=== PATIENT | female | born 1995 | race Caucasian/White ===

== ENCOUNTER 2018-03-21 21:47 | Emergency (ER) | END 2018-03-21 23:39 | disposition home or self-care (01) ==

== ENCOUNTER 2018-05-19 22:28 | Emergency (ER) | END 2018-05-19 22:59 | disposition left against medical advice (07) ==

== ENCOUNTER 2019-02-10 23:19 | Emergency (ER) | payer OTHER ==
[~2019-02-10] VITALS: Ht 165.1 cm; Wt 107.5 kg
[~2019-02-10 23:19] MED LIST: FLUC150T PO; HC30CR25 TOP
[2019-02-10 23:22] VITALS: Ht 165.1 cm; Wt 107.5 kg
[2019-02-11] MEDS ORDERED: ONDANSETRON (ODT) 4 MG TAB ODT STA (02:59)
--- NOTE | 2019-02-11 02:59 | ERD ---
ER Documentation Chief Complaint Chief Complaint L SIDE AP X'S 1 DAY HPI 23-year-old female presenting with left upper quadrant pain that started yesterday. She states that the pain was sharp, cramping, intermittent throughout the evening with associated nonbloody diarrhea. No alleviating factors. Worse after bowel movements. She has had some nausea but no vomiting. No fevers or chills. Denies dysuria or hematuria. No recent travel. ROS All systems reviewed and are negative except as per history of present illness. Medications Home Meds Active Scripts Loperamide Hcl* (Imodium*) 2 Mg Capsule, 2 MG PO .AFTER EA LOOSE BM PRN for DIARRHEA, #10 TAB Prov:GARETH ALBRECHT MD 02/11/19 Ondansetron (Ondansetron Odt) 4 Mg Tab.rapdis, 4 MG PO Q6H PRN for NAUSEA AND/OR VOMITING, #10 TAB Prov:GARETH ALBRECHT MD 02/11/19 Hydrocortisone* Topical (Hydrocortisone* Topical) 2.5%-28.3 Gm Cream..g., 1 APPLIC TOP BID, #1 TUB apply to bug bites Prov:JAY QUINTANILLA 03/21/18 Fluconazole* (Diflucan*) 150 Mg Tablet, 150 MG PO ONCE, #1 TAB Prov:JAY QUINTANILLA 03/21/18 Allergies Allergies: Coded Allergies: No Known Allergy (Unverified , 02/10/19) PMhx/Soc Medical and Surgical Hx: pt denies Medical Hx, pt denies Surgical Hx Hx Alcohol Use: No Hx Substance Use: No Hx Tobacco Use: No Smoking Status: Never smoker FmHx Family History: No diabetes Physical Exam Vitals Vital Signs Date Temp Pulse Resp B/P (MAP) Pulse Ox O2 O2 Flow FiO2 Time Delivery Rate 02/11/19 84 20 116/74 Room Air 02:30 (88) 02/10/19 97.4 95 18 111/68 99 23:22 (82) Physical Exam Const: No acute distress Head: Atraumatic Eyes: Normal Conjunctiva ENT: Normal External Ears, Nose and Mouth. Neck: Full range of motion. No meningismus. Resp: Clear to auscultation bilaterally Cardio: Regular rate and rhythm, no murmurs Abd: Soft, non tender, non distended. No rebound or guarding. Normal bowel sounds Skin: No petechiae or rashes Back: No midline or flank tenderness Ext: No cyanosis, or edema Neur: Awake and alert Psych: Normal Mood and Affect Results 24 hrs Laboratory Tests Test 02/11/19 02:43 02/11/19 02:55 02/11/19 02:57 Urine Color YELLOW Urine Clarity SLIGHTLY CLOUDY Urine pH 5.0 Urine Specific [place] 1.024 Urine Ketones NEGATIVE mg/dL Urine Nitrite NEGATIVE mg/dL Urine Bilirubin NEGATIVE mg/dL Urine Urobilinogen NEGATIVE mg/dL Urine Leukocyte Esterase 2+ Jalil/ul Urine Microscopic RBC 8 /HPF Urine Microscopic WBC 14 /HPF Urine Squamous Epithelial Cells FEW /HPF Urine Bacteria FEW /HPF Urine Hemoglobin 1+ mg/dL Urine Glucose NEGATIVE mg/dL Urine Total Protein NEGATIVE mg/dl Bedside Urine pH (LAB) 5.5 Bedside Urine Protein (LAB) Trace Bedside Urine Glucose (UA) Negative Bedside Urine Ketones (LAB) Negative Bedside Urine Blood 1+ Bedside Urine Nitrite (LAB) Negative Bedside Urine Leukocyte Esterase 1+ (L POC Beta HCG, Qualitative NEGATIVE Current Medications Medications Dose Sig/John Start Time Status Last (Trade) Ordered Route PRN Stop Time Admin Dose Reason Admin Ondansetron 8 mg ONCE STAT 02/11/19 DC 02/11/19 HCl (Zofran ODT 02:59 03:04 Odt) 02/11/19 03:00 Ibuprofen 600 mg ONCE ONCE 02/11/19 DC (Motrin) PO 03:00 02/11/19 03:01 Ketorolac 30 mg ONCE STAT 02/11/19 DC 02/11/19 Tromethamine IV 03:08 03:13 (Toradol) 02/11/19 03:11 Procedures/MDM EMERGENT LABS AND DIAGNOSTIC STUDIES: UA: 2+ leuk esterase and white blood cells noted, however patient asymptomatic Initial Nursing notes reviewed. Previous Medical Records requested via the Electronic Health Record. EMERGENCY DEPARTMENT COURSE / MEDICAL DECISION MAKING: Patient is presenting with left upper quadrant intermittent abdominal pain, currently improved. She is afebrile, with unremarkable vitals and well- appearing on exam. There are no signs of acute surgical abdomen. Doubt pyelonephritis or bowel obstruction. Patient likely suffering from gastroenteritis. I do not feel any further work-up or imaging is necessary at this time. Although her urine was abnormal, she is asymptomatic and does not require treatment with antibiotics. She was treated with pain medications and antiemetics here. Prescription for antiemetics and antidiarrheals given. Return precautions discussed. She was encouraged to return for any worsening symptoms within the next 8 to 12 hours. Departure Diagnosis: Primary Impression: Abdominal pain Abdominal location: left upper quadrant Qualified Codes: R10.12 - Left upper quadrant pain Additional Impression: Diarrhea Diarrhea type: unspecified type Qualified Codes: R19.7 - Diarrhea, unspecified Condition: Stable GARETH ALBRECHT MD Feb 11, 2019 02:59
[2019-02-11] MEDS: IBUPROFEN 600 MG TAB PO ONE ×2 (03:04→03:10)
[2019-02-11] MEDS ORDERED: KETOROLAC 30 MG INJ IV STA (03:08)
[2019-02-11] MEDS ORDERED: LOPE2CAP PO (03:11)
[2019-02-11] MEDS ORDERED: ONDA4TAB14 PO (03:11)
[2019-02-11 04:07] VITALS: BP 100/66; PULSE 68; RESP 14
== END 2019-02-11 04:07 | disposition home or self-care (01) ==
LOC: E/R 23:19
DX: R10.12 Left upper quadrant pain (principal); R19.7 Diarrhea, unspecified
CPT/HCPCS: 36415; 81001; 81025; 96374; J1885; Z7502; Z7610; 81003

== ENCOUNTER 2019-02-12 20:34 | Emergency (ER) | payer OTHER ==
[~2019-02-12] VITALS: Ht 165.1 cm; Wt 106.0 kg
[~2019-02-12 20:34] MED LIST changes: +LOPE2CAP PO; +ONDA4TAB14 PO
[2019-02-12 20:49] VITALS: Ht 165.1 cm; Wt 106.0 kg
[2019-02-12] MEDS ORDERED: FLUCONAZOLE 150 MG TAB PO ONE (23:30)
--- NOTE | 2019-02-12 23:56 | ERD ---
ER Documentation Chief Complaint Chief Complaint vaginal itching/redness/irritation X 1 day HPI Patient is a 23-year-old female, presents the ER for concerns of vaginal itching and redness x1 day. Patient states she came in from work and she had vaginal itching. Patient reports scratching the affected area. Patient states she did shave her pubic region yesterday given that she was having itching but she feels as if she made it worse. Patient has no fevers or chills. Patient has no discharge. Patient has no vaginal bleeding. Patient has no pelvic pain, dysuria, frequency, hematuria. ROS All systems reviewed and are negative except as per history of present illness. Medications Home Meds Active Scripts Loperamide Hcl* (Imodium*) 2 Mg Capsule, 2 MG PO .AFTER EA LOOSE BM PRN for DIARRHEA, #10 TAB Prov:GARETH ALBRECHT MD 02/11/19 Ondansetron (Ondansetron Odt) 4 Mg Tab.rapdis, 4 MG PO Q6H PRN for NAUSEA AND/OR VOMITING, #10 TAB Prov:GARETH ALBRECHT MD 02/11/19 Hydrocortisone* Topical (Hydrocortisone* Topical) 2.5%-28.3 Gm Cream..g., 1 APPLIC TOP BID, #1 TUB apply to bug bites Prov:JAY QUINTANILLA 03/21/18 Fluconazole* (Diflucan*) 150 Mg Tablet, 150 MG PO ONCE, #1 TAB Prov:JAY QUINTANILLA 03/21/18 Allergies Allergies: Coded Allergies: No Known Allergy (Unverified , 02/10/19) PMhx/Soc Medical and Surgical Hx: pt denies Medical Hx, pt denies Surgical Hx Hx Alcohol Use: No Hx Substance Use: No Hx Tobacco Use: No Smoking Status: Never smoker FmHx Family History: No diabetes Physical Exam Vitals Vital Signs Date Temp Pulse Resp B/P (MAP) Pulse Ox O2 O2 Flow FiO2 Time Delivery Rate 02/12/19 99.0 109 18 106/61 99 20:49 (76) Physical Exam GENERAL: Well-developed, well-nourished female. Appears in no acute distress. HEAD: Normocephalic, atraumatic. EYES: Pupils are equally reactive bilaterally. EOMs grossly intact. No con junctival erythema. ENT: Moist mucous membranes. No uvula deviation. No kissing tonsils. NECK: Supple. No meningismus. Normal range of motion of the neck. LUNG: Clear to auscultation bilaterally. No rhonchi, wheezing, rales or coarse breath sounds. HEART: Regular rate and rhythm. No murmurs, rubs or gallops. PHARMACY PICKING TECHNICIAN: ZEYAD Azul present. Mild erythema and swelling noted to bilateral outer labia. No vaginal discharge noted. EXTREMITIES: Equal pulses bilaterally. No peripheral clubbing, cyanosis or edema. No unilateral leg swelling. NEUROLOGIC: Alert and oriented. Moving all four extremities without any difficulty. Normal speech. Steady gait. SKIN: Normal color. Warm and dry. No rashes or lesions. Results 24 hrs Laboratory Tests Test 02/12/19 23:10 02/12/19 23:11 POC Beta HCG, Qualitative NEGATIVE Bedside Urine pH (LAB) 6.0 Bedside Urine Protein (LAB) Negative Bedside Urine Glucose (UA) Negative Bedside Urine Ketones (LAB) Trace Bedside Urine Blood Negative Bedside Urine Nitrite (LAB) Negative Bedside Urine Leukocyte Esterase (L Trace Current Medications Medications Dose Sig/John Start Time Status Last (Trade) Ordered Route PRN Stop Time Admin Dose Reason Admin Fluconazole 150 mg ONCE ONCE 02/12/19 DC 02/12/19 (Diflucan) PO 23:30 23:24 02/12/19 23:31 Procedures/MDM MEDICAL DECISION MAKING: Patient is a 23-year-old female who presents the ER for concerns of vaginal itching x1 day vital signs were reviewed. Patient is afebrile. Patient was not hypoxic. Patient was hemodynamically stable. 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 Urine negative. UA showed trace leukocyte esterase but given that patient denies any dysuria or frequency, urgency or hematuria, will defer treatment at this time. Patient was given Diflucan here for concerns of yeast infection. Patient was advised to apply Aquaphor to the affected area and take Benadryl for itching. Low suspicion for , ectopic , UTI, pyonephritis, nephrolithiasis. DISCHARGE: At this time, patient is stable for discharge and outpatient management. I have instructed the patient to follow-up with his/her primary care physician in 1-2 days. I have discussed with the patient the possibility of needing to see a specialist for further workup and imaging studies if symptoms persist. I have instructed the patient to promptly return to the ER for any new or worsening symptoms including increased pain, fever, nausea, vomiting, weakness or LOC. The patient and/or family expressed understanding of and agreement with this plan. All questions were answered. Home care instructions were provided. Disclaimer: Inadvertent spelling and grammatical errors are likely due to EHR/dictation software use and do not reflect on the overall quality of patient care. Also, please note that the electronic time recorded on this note does not necessarily reflect the actual time of the patient encounter. Departure Diagnosis: Primary Impression: Vaginal itching Condition: Fair Patient Instructions: Vaginal Infection: Yeast (Candidiasis) Referrals: [facility] YOU HAVE RECEIVED A MEDICAL SCREENING EXAM AND THE RESULTS INDICATE THAT YOU DO NOT HAVE A CONDITION THAT REQUIRES URGENT TREATMENT IN THE EMERGENCY DEPARTMENT. FURTHER EVALUATION AND TREATMENT OF YOUR CONDITION CAN WAIT UNTIL YOU ARE SEEN IN YOUR DOCTORS OFFICE WITHIN THE NEXT 1-2 DAYS. IT IS YOUR RESPONSIBILITY TO MAKE AN APPOINTMENT FOR FOLOW-UP CARE. IF YOU HAVE A PRIMARY DOCTOR --you should call your primary doctor and schedule an appointment IF YOU DO NOT HAVE A PRIMARY DOCTOR YOU CAN CALL OUR PHYSICIAN REFERRAL HOTLINE AT IF YOU CAN NOT AFFORD TO SEE A PHYSICIAN YOU CAN CHOSE FROM THE FOLLOWING [facility] [address] [facility]. [facility] [address] [facility]. [facility] [address] [facility]. [facility] [address] [facility]. [facility] [address] [facility]. [facility]. [address] [facility]. [facility] YOU HAVE RECEIVED A MEDICAL SCREENING EXAM AND THE RESULTS INDICATE THAT YOU DO NOT HAVE A CONDITION THAT REQUIRES URGENT TREATMENT IN THE EMERGENCY DEPARTMENT. FURTHER EVALUATION AND TREATMENT OF YOUR CONDITION CAN WAIT UNTIL YOU ARE SEEN IN YOUR DOCTORS OFFICE WITHIN THE NEXT 1-2 DAYS. IT IS YOUR RESPONSIBILITY TO MAKE AN APPOINTMENT FOR FOLOW-UP CARE. IF YOU HAVE A PRIMARY DOCTOR --you should call your primary doctor and schedule and appointment IF YOU DO NOT HAVE A PRIMARY DOCTOR YOU CAN CALL OUR PHYSICIAN REFERRAL HOTLINE AT . IF YOU CAN NOT AFFORD TO SEE A PHYSICIAN YOU CAN CHOSE FROM THE FOLLOWING [facility] INSTITUTIONS: [facility] [address] [place] [address] [facility] [address] [place] [address] [facility] [address] [place] [address] [employer]IC[employer]ED INVESTMENT SALES ASSISTANT [place] [address] [facility] [address] [place] [address] OFFICE FAX , [facility] [address] [place], [place] [id number] [facility] [address] [place] [address] [address], [facility] [address] [facility], [address] [address] [facility] [facility] [address] [place] [address] [facility] [address] [place] [address] [address] [facility] [address] [address], [facility] [address] [address] [address] [facility]. [address], [facility] [address] [address] [address] [place], [place] [id number] Additional Instructions: Call your primary care doctor TOMORROW for an appointment during the next 1-2 days.See the doctor sooner or return here if your condition worsens before your appointment time. MARCIANO LÓPEZ PA-C Feb 12, 2019 23:56
[2019-02-13 00:05] VITALS: BP 113/72; PULSE 78; RESP 18
== END 2019-02-13 00:06 | disposition home or self-care (01) ==
LOC: FTE 20:34
DX: N89.8 Other specified noninflammatory disorders of vagina (principal)
CPT/HCPCS: 81003; 81025; Z7502; Z7610; 99284

== ENCOUNTER 2019-03-06 20:11 | Emergency (ER) | payer OTHER ==
[~2019-03-06] VITALS: Ht 165.1 cm; Wt 108.0 kg
[2019-03-06 20:19] VITALS: Ht 165.1 cm; Wt 108.0 kg
[2019-03-06] MEDS ORDERED: KETOROLAC 30 MG INJ IM STA (21:16)
[2019-03-06] MEDS ORDERED: HYDROCODONE/APAP (5/325) TAB PO ONE (21:30)
[2019-03-06] MEDS ORDERED: ONDANSETRON (ODT) 4 MG TAB ODT STA (22:51)
[2019-03-06] MEDS ORDERED: morphine 4 MG/ML VIAL IM STA (22:58)
[2019-03-06] MEDS ORDERED: morphine 10 MG INJ IM ONE (23:00)
[2019-03-06] MEDS ORDERED: IBUP800T48 PO (23:21)
[2019-03-06] MEDS ORDERED: MED4DP PO (23:21)
--- NOTE | 2019-03-06 23:25 | ERD ---
ER Documentation Chief Complaint Chief Complaint low back pain w/out injury x 2weeks HPI 23-year-old female presents with lower back pain that she is had for 2 weeks. The pain is throbbing and radiates down her right lower extremity. No injury or trauma. She is tried ibuprofen and Flexeril and Toradol given to her by primary care but does not help. No bowel or bladder incontinence. No numbness or tingling. No dysuria hematuria frequency. ROS All systems reviewed and are negative except as per history of present illness. Medications Home Meds Active Scripts Methylprednisolone* (Medrol* DOSE PACK) 4 Mg/Dose-Pack Tab.ds.pk, 4 MG PO . DIRECTED for 5 Days, PACKET Prov:ANIYA CARRINGTON PA-C 03/06/19 Ibuprofen* (Motrin*) 800 Mg Tab, 800 MG PO Q6, #30 TAB Prov:ANIYA CARRINGTON PA-C 03/06/19 Loperamide Hcl* (Imodium*) 2 Mg Capsule, 2 MG PO .AFTER EA LOOSE BM PRN for DIARRHEA, #10 TAB Prov:GARETH ALBRECTH MD 02/11/19 Ondansetron (Ondansetron Odt) 4 Mg Tab.rapdis, 4 MG PO Q6H PRN for NAUSEA AND/OR VOMITING, #10 TAB Prov:GARETH ALBRECHT MD 02/11/19 Hydrocortisone* Topical (Hydrocortisone* Topical) 2.5%-28.3 Gm Cream..g., 1 APPLIC TOP BID, #1 TUB apply to bug bites Prov:JAY QUINTANILLA 03/21/18 Fluconazole* (Diflucan*) 150 Mg Tablet, 150 MG PO ONCE, #1 TAB Prov:JAY QUINTANILLA 03/21/18 Allergies Allergies: Coded Allergies: acetaminophen (Verified Adverse Reaction, Mild, 03/06/19) hydrocodone (Verified Adverse Reaction, Mild, 03/06/19) PMhx/Soc Medical and Surgical Hx: pt denies Surgical Hx Hx Miscellaneous Medical Probl: Yes (LMP 01/17) Hx Alcohol Use: No Hx Substance Use: No Hx Tobacco Use: No Smoking Status: Never smoker FmHx Family History: No diabetes Physical Exam Vitals Vital Signs Date Temp Pulse Resp B/P (MAP) Pulse Ox O2 O2 Flow FiO2 Time Delivery Rate 03/06/19 89 16 116/72 100 Room Air 22:59 (87) 03/06/19 98.0 109 18 130/67 100 20:19 (88) Physical Exam INITIAL VITAL SIGNS: Reviewed by me GENERAL: Awake, alert and oriented x 4, well appearing, nontoxic, speaking in full sentences. No acute distress HEAD: Atraumatic NECK: Supple. No masses. Full range of motion. No meningismus. No midline tenderness. RESPIRATORY: Clear to auscultation bilaterally. Symmetric chest wall rise. No wheezing or rales. No accessory muscle use. CV: Regular rate and rhythm. No murmurs, rubs, or gallops. ABDOMEN: Soft, non-distended. Nontender. Negative [place]. Negative [place] point tenderness. No CVA tenderness bilaterally. No guarding. No rebound. Back Exam: Compartments: Soft Motor: Normal flexion and extension of bilateral hip/knee/ankle/foot Sensation: Intact to light touch throughout Bones: No midline TTP Results 24 hrs Laboratory Tests Test 03/06/19 21:02 03/06/19 21:25 POC Beta HCG, Qualitative NEGATIVE Bedside Urine pH (LAB) 6.0 Bedside Urine Protein (LAB) 1+ Bedside Urine Glucose (UA) Negative Bedside Urine Ketones (LAB) Negative Bedside Urine Blood 3+ Bedside Urine Nitrite (LAB) Negative Bedside Urine Leukocyte Esterase (L Negative Current Medications Medications Dose Sig/Ojhn Start Time Status Last (Trade) Ordered Route PRN Stop Time Admin Dose Reason Admin Ketorolac 30 mg ONCE STAT 03/06/19 DC 03/06/19 Tromethamine IM 21:16 21:34 (Toradol) 03/06/19 21:18 1 tab ONCE ONCE 03/06/19 DC 03/06/19 Acetaminophen PO 21:30 21:32 / 03/06/19 21:31 Hydrocodone Bitart ([place] (5/325)) Morphine 6 mg ONCE ONCE 03/06/19 Cancel Sulfate IM 23:00 (morphine) 03/06/19 23:01 Ondansetron 4 mg ONCE STAT 03/06/19 DC 03/06/19 HCl (Zofran ODT 22:51 23:04 Odt) 03/06/19 22:52 Morphine 4 mg ONCE STAT 03/06/19 DC 03/06/19 Sulfate IM 22:58 23:04 (morphine) 03/06/19 23:00 Procedures/MDM This is a 23-year-old female with back pain. She has no urinary symptoms. There is noted hematuria in her urine otherwise no evidence of infection, she is currently on her menstrual period. X-ray of lumbar spine is negative. She was given Toradol and [place] with no improvement. Then she was given morphine IM with Zofran. She is to follow-up with her primary care doctor for possible outpatient referral to get MRI. She has no bowel or bladder incontinence or saddle anesthesia. She was given prescription for Medrol Dosepak and Motrin. Patient counseled regarding my diagnostic impression and care plan. Prior to dis charge all questions answered. Pt agrees with treatment plan and understands strict return precautions. Pt is instructed to follow up with primary care provider within 24-48 hours. Precautionary instructions provided including instructions to return to the ER if not improving or for any worsening or changing symptoms or concerns. Departure Diagnosis: Primary Impression: Back pain Condition: Stable Patient Instructions: Back Pain (Acute Or Chronic) Additional Instructions: Call your primary care doctor TOMORROW for an appointment during the next 1-2 days.See the doctor sooner or return here if your condition worsens before your appointment time. ANIYA CARRINGTON PA-C Mar 06, 2019 23:25
[2019-03-07] MEDS ORDERED: DIPHENHYDRAMINE 25 MG CAP PO ONE
[2019-03-07 00:52] VITALS: BP 113/74; PULSE 70; RESP 17
== END 2019-03-07 00:52 | disposition home or self-care (01) ==
LOC: FTE 20:11
DX: M54.5 Low back pain (principal)
CPT/HCPCS: 72100; 81003; 81025; 96372; J1885; J2270; Z7502; Z7610

== ENCOUNTER 2019-04-08 10:18 | Emergency (ER) | payer OTHER ==
[~2019-04-08] VITALS: Ht 160 cm; Wt 103.0 kg
[~2019-04-08 10:18] MED LIST changes: +BEN50 PO; +CEPH-443 PO; +IBUP800T48 PO; +LACT1CAP57 PO; +MED4DP PO; +SULF1TAB31 PO
[2019-04-08 10:35] VITALS: BP 138/88; PULSE 103; RESP 18; Ht 160 cm; Wt 103.0 kg
== END 2019-04-08 11:09 | disposition home or self-care (01) ==
LOC: FTE 10:18
DX: L03.115 Cellulitis of right lower limb (principal); L03.116 Cellulitis of left lower limb; L03.114 Cellulitis of left upper limb; L03.113 Cellulitis of right upper limb; L03.221 Cellulitis of neck
CPT/HCPCS: 99283